=== PATIENT | female | born 1955 | race American Indian/Alaskan Native ===

== ENCOUNTER 2018-05-07 01:00 | Emergency (ER) | payer OTHER ==
[2018-05-07] MEDS ORDERED: Midazolam 1 MG/ML 2 ML SDV ONE ×3 (01:06→01:13)
--- NOTE | 2018-05-07 01:16 | EDM.PDOC ---
ED HPI GENERAL MEDICAL PROBLEM - General Stated Complaint: AMBULANCE Time Seen by Provider: 05/07/18 01:16 Source of Information: Reports: Patient History Limitations: Reports: No Limitations - History of Present Illness INITIAL COMMENTS - FREE TEXT/NARRATIVE: HISTORY AND PHYSICAL: History of present illness: 62-year-old female presenting to the emergency department by EMS with altered mental status and apnea. As per EMS and daughter, patient has been sick for the past week with productive cough. She was recently diagnosed with bronchitis and started on an antibiotic unknown started 3 days ago. Today she went to work and was her normal self and when daughter came to see her this evening around 7:00 she states that she was "acting funny". She denied any facial drooping or focal neurologic signs. States that she was just laughing and not acting her normal self. Secondary to her altered mental status. Daughter called EMS. As per EMS when they got there she was completely altered. She was uncooperative so no IV was placed at that time. Approximately 2 minutes before arriving into the emergency department patient became apneic and unresponsive. In the emergency department patient's initial saturations were 80%. We did bag her to 94%. Initial blood pressure was in the 170s systolic with tachy into the 130's. She had good peripheral pulses throughout. I was able to pass a 7.5 ET tube without significant difficulty. Patient does have anterior airway. Patient was given 18 of etomidate, 80 of succinyl choline, and 6 of Versed. Secondary to the history I did start vancomycin as well as Zosyn. Chest x-ray repeated confirmed appropriate ET tube placement. Secondary to respiratory depression and altered mental status we did transfer the patient to [place] with Dr. Edmond, ER physician , accepting. GCS-7 Review of systems: As per history of present illness and below otherwise all systems reviewed and negative. Past medical history: As per history of present illness and as reviewed below otherwise noncontributory. Surgical history: As per history of present illness and as reviewed below otherwise noncontributory. Social history: No reported history of drug or alcohol abuse. Family history: As per history of present illness and as reviewed below otherwise noncontributory. Physical exam: HEENT: Atraumatic, normocephalic, pupils reactive, negative for conjunctival pallor or scleral icterus, mucous membranes moist, throat clear, neck supple, nontender, trachea midline. Lungs: decreased breath sounds throughout, breath sounds equal bilaterally, chest nontender. Heart: S1S2, regular, negative for clicks, rubs, or JVD. Abdomen: Soft, nondistended, nontender. Negative for masses or hepatosplenomegaly. Negative for costovertebral tenderness. Pelvis: Stable nontender. Genitourinary: Deferred. Rectal: Deferred. Extremities: Atraumatic, negative for cords or calf pain. Neurovascular unremarkable. Neuro: Cranial nerves II through XII unremarkable. Cerebellum unremarkable. Motor and sensory unremarkable throughout. Exam nonfocal. Diagnostics: CBC, CMP, troponin, INR, d-dimer, blood culture 2, chest x-ray Therapeutics: Impression: Respiratory distress Altered mental status Recent bronchitis Plan: Please see above H&P Definitive disposition and diagnosis as appropriate pending reevaluation and review of above. ED ROS GENERAL - Review of Systems Review Of Systems: ROS reveals no pertinent complaints other than HPI. ED EXAM, GENERAL - Physical Exam Exam: See Below Course - Orders/Labs/Meds Orders: Active Orders 24 hr Category Date Time Status Chest 1V Frontal [CR] Stat Exams 05/07/18 01:17 Ordered Piperacillin/Tazobactam [Zosyn] 4.5 gm Med 05/07/18 01:30 Ordered Sodium Chloride 0.9% [Normal Saline] 100 ml IV Q6H Medication Orders Piperacillin Sod/Tazobactam (Sod 4.5 gm/ Sodium Chloride) 100 mls @ 200 mls/hr IV Q6H VILMA Meds: Medications Generic Name Dose Route Start Last Admin Trade Name Freq PRN Reason Stop Dose Admin Piperacillin Sod/Tazobactam 100 mls @ 200 mls/hr 05/07/18 01:30 Sod 4.5 gm/ Sodium Chloride IV Q6H VILMA Discontinued Medications Generic Name Dose Route Start Last Admin Trade Name Freq PRN Reason Stop Dose Admin Sodium Chloride Confirm 05/07/18 01:17 Normal Saline Administered 05/07/18 01:18 Dose 250 mls @ as directed .ROUTE .STK-MED ONE Midazolam HCl Confirm 05/07/18 01:06 Versed 1 Mg/Ml Administered 05/07/18 01:07 Dose 2 mg .ROUTE .STK-MED ONE Midazolam HCl Confirm 05/07/18 01:12 Versed 1 Mg/Ml Administered 05/07/18 01:13 Dose 2 mg .ROUTE .STK-MED ONE Midazolam HCl Confirm 05/07/18 01:13 Versed 1 Mg/Ml Administered 05/07/18 01:14 Dose 2 mg .ROUTE .STK-MED ONE Vancomycin HCl Confirm 05/07/18 01:15 Vancocin Administered 05/07/18 01:16 Dose 1 gm .ROUTE .STK-MED ONE Departure - Departure Time of Disposition: 01:50 Disposition: DC/Tfer to Acute Hospital 02 Condition: Good Clinical Impression: Respiratory decompensation Altered mental status Qualifiers: Altered mental status type: disorientation Qualified Code(s): R41.0 - Disorientation, unspecified - Discharge Information Referrals: PCP,None [Primary Care Provider] - - My Orders Last 24 Hours: My Active Orders 05/07/18 01:17 Chest 1V Frontal [CR] Stat 05/07/18 01:30 Piperacillin/Tazobactam [Zosyn] 4.5 gm Sodium Chloride 0.9% [Normal Saline] 100 ml IV Q6H - Assessment/Plan Last 24 Hours: My Active Orders 05/07/18 01:17 Chest 1V Frontal [CR] Stat 05/07/18 01:30 Piperacillin/Tazobactam [Zosyn] 4.5 gm Sodium Chloride 0.9% [Normal Saline] 100 ml IV Q6H
[2018-05-07] MEDS: Vancomycin 1 GM AdvVial ONE ×2 (01:23→02:58)
[2018-05-07] MEDS: Sodium Chloride 0.9% 250 ML ONE ×2 (01:23→02:58)
[2018-05-07] MEDS ORDERED: Piperacillin/Tazobactam 4.5 GM in Sodium Chloride 0.9% 100 ML IV SCH (01:30)
[2018-05-07] MEDS ORDERED: Sodium Chloride 0.9% 1,000 ML IV ONE ×3 (01:51→02:38)
[2018-05-07] MEDS ORDERED: Sodium Chloride 0.9% 2.5 ML Syringe FLUSH PRN ×2 (01:51)
[2018-05-07] MEDS ORDERED: Sodium Chloride 0.9% 10 ML Syringe FLUSH PRN (01:51)
[2018-05-07 02:08] LABS: CHLORIDE,CL 102 mmol/L (98-107); SODIUM,NA 140 mmol/L (136-145)
[2018-05-07] MEDS ORDERED: Midazolam 1 MG/ML 2 ML SDV IVPUSH ONE (02:32)
--- NOTE | 2018-05-07 11:27 | CR ---
EXAM DATE: 05/07/18 PATIENT'S AGE: 62 Patient: TODD CAMARILLO Facility: [place], [place] Site . Site : 1955 Study: XRay Chest [id number] post intubation-05/07/2018 1:23:22 AM Ordering Physician: Doctor Doran Final Report: INDICATION: Unresponsive, Post Intubation TECHNIQUE: Chest radiograph 1 view COMPARISON: 08/16/2013 FINDINGS: Mediastinum: The mediastinum is normal in appearance. The heart silhouette is normal in size and morphology. The endotracheal tube tip is positioned within the right mainstem bronchus. Lung: Perihilar edema, bibasilar atelectasis and bilateral pleural effusions are noted without change. No pneumothorax is identified. Musculoskeletal: Unremarkable for age. IMPRESSION: 1. The endotracheal tube tip is positioned within the right mainstem bronchus. The findings were discussed with Dr. Gonzalez at 1:26 AM. Dictated by Pineda Durbin MD @ 05/07/2018 1:24:04 AM Dictated by: Pineda Durbin MD @ 05/07/2018 01:27:12 (Electronic Signature) Report Signed by Proxy. SUDHEER
--- NOTE | 2018-05-07 11:28 | CR ---
EXAM DATE: 05/07/18 PATIENT'S AGE: 62 Patient: TODD CAMARILLO Facility: [place], [place] Site . Site : 1955 Study: XRay Chest -05/07/2018 1:41:42 AM Ordering Physician: Doctor Doran Final Report: INDICATION: Respiratory distress TECHNIQUE: Chest radiograph COMPARISON: 05/07/2018 FINDINGS: Mediastinum: The right mediastinal border is mildly convex appearance. The heart silhouette is normal in size and morphology. The ET tube has been retracted with its tip at the orifice of the right mainstem bronchus and should be withdrawn by approximately 4 cm. The NG tube tip is not included but is positioned beyond the GE junction. Lung: Both lungs are clear. No pneumothorax is identified. No pleural effusion seen. Musculoskeletal: Unremarkable for age. IMPRESSIONS: 1. The ET tube has been retracted with its tip at the orifice of the right mainstem bronchus and should be withdrawn by approximately 4 cm. 2. The right mediastinal border is mildly convex appearance. Assessment with chest CT may be helpful when the patient is clinically stable. A copy of this report was faxed to Dr. Gonzalez at approximately 1:44 AM. Dictated by Pineda Durbin MD @ 05/07/2018 1:44:25 AM Dictated by: Pineda Durbin MD @ 05/07/2018 01:44:36 (Electronic Signature) Report Signed by Proxy. [facility]
[2018-05-07] MEDS ORDERED: Etomidate 2 MG/ML 20 ML SDV IVPUSH ONE (21:30)
[2018-05-07] MEDS ORDERED: Succinylcholine 200 MG/10 ML MDV ONE (21:30)
== END 2018-05-07 01:55 ==
LOC: MW.ED 01:00
DX: J98.8 Other specified respiratory disorders (principal); R06.81 Apnea, not elsewhere classified; R41.0 Disorientation, unspecified
CPT/HCPCS: 31500; 36415; 51702; 71045; 80053; 81001; 82150; 83690; 84484; 85025; 85379; 85610; 96365; 96375; 99291; J0330; J2250; J3370; J3490; J7040; J7060; 43753; 99285; J7050

== ENCOUNTER 2024-09-06 11:15 | Emergency (ER) | payer OTHER ==
[2024-09-06 11:50] LABS: BASOPHILS ABSOLUTE AUTO 0.03 K/uL (0.00-0.20); BASOPHILS PERCENT AUTO 0.4 % (0.0-1.0); EOSINOPHILS ABSOLUTE AUTO 0.03 K/uL (0.00-0.45); EOSINOPHILS PERCENT AUTO 0.4 % (0.0-6.0); HEMOGLOBIN 13.9 g/dL (12.0-16.0); IMMATURE GRAN ABSOLUTE AUTO 0.04 K/uL (0.00-0.05); IMMATURE GRAN PERCENT AUTO 0.6 % (0.0-0.4); LYMPHOCYTES ABSOLUTE AUTO 1.06 K/uL (1.00-4.80); LYMPHOCYTES PERCENT AUTO 15.3 % (24.0-44.0); MEAN CORPUSCULAR HEMOGLOBIN 32.1 pg (28.0-32.0); MEAN CORPUSCULAR HGB CONC 34.8 g/dL (32.0-36.0); MEAN CORPUSCULAR VOLUME 92.4 fL (83.0-99.0); MEAN PLATELET VOLUME 8.5 fL (9.4-12.3); MONOCYTES ABSOLUTE AUTO 0.51 K/uL (0.00-0.80); MONOCYTES PERCENT AUTO 7.3 % (0.0-8.0); NEUTROPHILS ABSOLUTE AUTO 5.27 K/uL (1.80-7.70); PLATELET COUNT,PLT 332 K/uL (150-400); RED BLOOD CELL COUNT 4.33 M/uL (4.10-5.30); WHITE BLOOD CELL COUNT,WBC 6.94 K/uL (3.9-11.3)
[2024-09-06 12:19] LABS: A/G RATIO 1.1 (0.9-1.6); ALBUMIN 3.5 g/dL (3.4-5.0); BILIRUBIN TOTAL 0.3 mg/dL (0.2-1.0); CALCIUM 9.3 mg/dL (8.5-10.1); CARBON DIOXIDE,CO2 32.6 mmol/L (21.0-32.0); CREATININE 0.8 mg/dL (0.6-1.0); EST CRCL DRUG DOSING (CG) 51.39 mL/min; POTASSIUM,K 3.3 mmol/L (3.5-5.1); PROTEIN TOTAL,TP 6.6 g/dL (6.4-8.2)
[2024-09-06 12:26] LABS: APPEARANCE,URINE CLEAR; BILIRUBIN,URINE SMALL (NEGATIVE); COLOR,URINE YELLOW; GLUCOSE,URINE NEGATIVE (NEGATIVE); KETONES,URINE TRACE mg/dL (NEGATIVE); LEUKOCYTE ESTERASE,URINE NEGATIVE (NEGATIVE); NITRITE,URINE NEGATIVE (NEGATIVE); OCCULT BLOOD,URINE NEGATIVE (NEGATIVE); PROTEIN,URINE 30 mg/dL (NEGATIVE)
[2024-09-06 12:48] LABS: BACTERIA,URINE FEW (NEGATIVE); EPITHELIAL CELLS,URINE FEW (NONE-FEW); MUCUS,URINE LIGHT (NONE-MOD); RBC,URINE 0-2 (0-2/HPF); WBC,URINE 0-1 (0-5/HPF)
[2024-09-06] MEDS: Potassium Chloride 20 MEQ Tab.ER PO ONE (12:50)
[2024-09-06 13:53] LABS: MAGNESIUM 2.2 mg/dL (1.8-2.4); TSH ULTRASENSITIVE 1.78 uIU/mL (0.36-3.74)
[2024-09-06 14:02] LABS: AMPHETAMINES SCREEN, URINE NEGATIVE (CUTOFF=500); BARBITURATE SCREEN,URINE NEGATIVE (CUTOFF=200); BENZODIAZEPINES SCREEN,URINE NEGATIVE (CUTOFF=150); BUPRENORPHINE SCREEN,URINE NEGATIVE (CUTOFF=10); METHADONE SCREEN, URINE NEGATIVE (CUTOFF=200); METHAMPHETAMINES SCREEN, URINE NEGATIVE (CUTOFF=500); OXYCODONE SCREEN,URINE NEGATIVE (CUT0FF=100); PCP SCREEN,URINE NEGATIVE (CUTOFF=25); THC SCREEN,URINE 20 NG/ML PRESUMPTIVE POSITIVE (CUTOFF=50)
[2024-09-06] MEDS ORDERED: Iopamidol 755 MG/ML 500 ML Multipack Bottle IVPUSH STA (14:32)
[2024-09-06] MEDS: Iopamidol 755 MG/ML 500 ML Multipack Bottle IVPUSH STA (14:34)
== END 2024-09-06 15:24 | disposition home or self-care (01) ==
LOC: MW.ED 11:15
DX: B34.9 Viral infection, unspecified (principal); F17.210 Nicotine dependence, cigarettes, uncomplicated; Z79.899 Other long term (current) drug therapy; Z75.8 Other problems related to medical facilities and other health care
CPT/HCPCS: 36415; 70450; 70496; 70498; 71045; 80053; 80305; 81001; 83735; 84443; 84484; 85025; 87428; 93005; 99285; A9270; Q9967

== ENCOUNTER 2025-01-13 11:35 | Day surgery (SDC) | payer MEDICARE, OTHER ==
[2025-01-13] MEDS ORDERED: Sodium Chloride 0.9% 2.5 ML Syringe FLUSH PRN ×2 (12:25→14:27)
[2025-01-13] MEDS ORDERED: Sodium Chloride 0.9% 10 ML Syringe FLUSH PRN ×2 (12:25→14:27)
[2025-01-13 12:32] LABS: BASOPHILS ABSOLUTE AUTO 0.02 K/uL (0.00-0.20); BASOPHILS PERCENT AUTO 0.1 % (0.0-1.0); EOSINOPHILS ABSOLUTE AUTO 0.03 K/uL (0.00-0.45); EOSINOPHILS PERCENT AUTO 0.2 % (0.0-6.0); HEMATOCRIT 44.4 % (37.0-47.0); HEMOGLOBIN 14.6 g/dL (12.0-16.0); IMMATURE GRAN ABSOLUTE AUTO 0.07 K/uL (0.00-0.05); IMMATURE GRAN PERCENT AUTO 0.5 % (0.0-0.4); LYMPHOCYTES PERCENT AUTO 2.7 % (24.0-44.0); MEAN CORPUSCULAR HEMOGLOBIN 31.1 pg (28.0-32.0); MEAN CORPUSCULAR HGB CONC 32.9 g/dL (32.0-36.0); MEAN CORPUSCULAR VOLUME 94.7 fL (83.0-99.0); MEAN PLATELET VOLUME 8.9 fL (9.4-12.3); MONOCYTES ABSOLUTE AUTO 0.62 K/uL (0.00-0.80); MONOCYTES PERCENT AUTO 4.2 % (0.0-8.0); NEUTROPHILS ABSOLUTE AUTO 13.68 K/uL (1.80-7.70); NEUTROPHILS PERCENT AUTO 92.3 % (41.0-71.0); PLATELET COUNT,PLT 235 K/uL (150-400); RED BLOOD CELL COUNT 4.69 M/uL (4.10-5.30); WHITE BLOOD CELL COUNT,WBC 14.82 K/uL (3.9-11.3)
[2025-01-13] MEDS: Sodium Chloride 0.9% 1,000 ML IV ONE (12:41)
[2025-01-13] MEDS: Morphine 4 MG/ML Syringe IVPUSH ONE (12:43)
[2025-01-13] MEDS: Ondansetron 4 MG/2 ML SDV IVPUSH ONE (12:43)
[2025-01-13 12:48] LABS: A/G RATIO 1.2 (0.9-1.6); ALBUMIN 3.6 g/dL (3.4-5.0); BILIRUBIN TOTAL 0.5 mg/dL (0.2-1.0); CALCIUM 8.7 mg/dL (8.5-10.1); CARBON DIOXIDE,CO2 28.4 mmol/L (21.0-32.0); CREATININE 0.8 mg/dL (0.6-1.0); EST CRCL DRUG DOSING (CG) 50.82 mL/min; POTASSIUM,K 4.2 mmol/L (3.5-5.1); PROTEIN TOTAL,TP 6.7 g/dL (6.4-8.2)
[2025-01-13 12:53] LABS: APPEARANCE,URINE SLT CLOUDY; COLOR,URINE YELLOW; GLUCOSE,URINE NEGATIVE (NEGATIVE); KETONES,URINE 15 mg/dL (NEGATIVE); LEUKOCYTE ESTERASE,URINE NEGATIVE (NEGATIVE); NITRITE,URINE NEGATIVE (NEGATIVE); OCCULT BLOOD,URINE NEGATIVE (NEGATIVE); PROTEIN,URINE TRACE mg/dL (NEGATIVE); UROBILINOGEN,URINE 0.2 EU/dL (<2.0)
[2025-01-13 12:54] LABS: BILIRUBIN,URINE SMALL (NEGATIVE)
[2025-01-13 12:59] LABS: EPITHELIAL CELLS,URINE MANY (NONE-FEW); RBC,URINE 0-2 (0-2/HPF); WBC,URINE 0-3 (0-5/HPF)
[2025-01-13 13:00] LABS: BACTERIA,URINE FEW (NEGATIVE); MUCUS,URINE MODERATE (NONE-MOD)
[2025-01-13] MEDS: Morphine 2 MG/ML SYRINGE IVPUSH ONE (13:35)
[2025-01-13] MEDS: Iopamidol 755 MG/ML 500 ML Multipack Bottle IVPUSH STA (13:53)
[2025-01-13] MEDS ORDERED: fentaNYL 100 MCG/2 ML SDV ONE (14:23)
[2025-01-13] MEDS ORDERED: Propofol 200 MG/20 ML SDV ONE (14:23)
[2025-01-13] MEDS ORDERED: Rocuronium Bromide 50 MG/5 ML Syringe ONE (14:24)
[2025-01-13] MEDS ORDERED: Lidocaine 2% 5 ML SDV ONE (14:24)
[2025-01-13] MEDS ORDERED: dexmedeTOMIDine HCl 200 MCG/2 ML SDV ONE (14:27)
[2025-01-13] MEDS ORDERED: Sodium Chloride 0.9% 20 ML SDV IV PRN (14:27)
[2025-01-13] MEDS ORDERED: Bupivacaine 0.5% 30 ML SDV ONE (14:30)
[2025-01-13] MEDS ORDERED: Bupivacaine 0.25% 30 ML SDV ONE (14:32)
[2025-01-13] MEDS ORDERED: Bupivacaine 0.25% 10 ML SDV ONE (14:32)
[2025-01-13] MEDS: Piperacillin/Tazobactam 4.5 GM in Sodium Chloride 0.9% 100 ML IV ONE (14:42)
[2025-01-13] MEDS ORDERED: Phenylephrine HCl In 0.9% NaCl 1 MG/10 ML Syringe ONE (15:10)
[2025-01-13] MEDS ORDERED: Magnesium Sulfate (4.06 MEQ/ML) 5 GM/10 ML SDV ONE (15:23)
[2025-01-13] MEDS ORDERED: Sugammadex Sodium 200 MG/2 ML VIAL IV ONE (15:39)
[2025-01-13] MEDS ORDERED: Ondansetron 4 MG/2 ML SDV ONE (15:39)
[2025-01-13] MEDS ORDERED: Dexamethasone 4 MG/ML 5 ML MDV ONE (15:39)
[2025-01-13] MEDS ORDERED: Ketorolac 30 MG/ML SDV ONE (15:39)
[2025-01-13] MEDS: Lactated Ringers 1,000 ML IV SCH (17:09)
== END 2025-01-13 19:01 | disposition home or self-care (01) ==
LOC: MW.ED 11:35 → MW.SDS 15:47 → MW.MS 15:47 → MW.SDS 19:01
PROVIDERS: ATTEND Surgery
DX: K35.30 Acute appendicitis with localized peritonitis, without perforation or gangrene (principal); K38.2 Diverticulum of appendix; K38.8 Other specified diseases of appendix; F17.210 Nicotine dependence, cigarettes, uncomplicated; Z79.899 Other long term (current) drug therapy
CPT/HCPCS: 36415; 44970; 64488; 74177; 80053; 81001; 83690; 85025; 88304; 96361; 96374; 96375; 96376; 99285; J0665; J1100; J1885; J2003; J2270; J2371; J2405; J2543; J2704; J3010; J3475; J7030; J7120; Q9967; 00840; 99284; J3490